=== PATIENT | male | born 1955 | race Caucasian/White ===

== ENCOUNTER 2022-01-31 16:46 | Inpatient (IN) | payer MEDICARE, OTHER ==
[~2022-01-31] VITALS: Ht 170.2 cm; Wt 44.0 kg
--- NOTE | 2022-01-31 17:05 | NUR ---
prabhakar, from sn[facility], s/p fall, hit his head on the bed frame, no ALOC. Noticed bump on the occipital area. Placed comfortably in bed. Vitals checked.
[2022-01-31] MEDS ORDERED: ETOMIDATE 2 MG/ML VIAL IV ONE (19:00)
--- NOTE | 2022-01-31 19:07 | NUR ---
R FA #20 IV ESTABLISHED. PATENT AND FLUSHING
[2022-01-31] MEDS ORDERED: ETOMIDATE 2 MG/ML VIAL ONE (19:30)
--- NOTE | 2022-01-31 20:01 | NUR ---
CT SCAN DONE AT RADIOLOGY DEPT
--- NOTE | 2022-01-31 20:01 | NUR ---
THERE WAS A STANDBY ETOMIDATE IN CASES PATIENT WILL BE RESTLESS. IT WAS NOT GIVEN BECAUSE PATIENT WAS NOT RESTLESS.
--- NOTE | 2022-01-31 20:38 | NUR ---
RAPID COVID COLLECTED AND SENT TO LAB.
[2022-01-31 21:15] LABS: BASOPHILS % (AUTO) 0.6 % (0.0-2.0); EOSINOPHILS % (AUTO) 1.5 % (0.0-6.0); HEMATOCRIT 29 % (39-51); HEMOGLOBIN 9.4 g/dL (13.5-17.5); LYMPHOCYTES # (AUTO) 1.7 K/uL (0.8-4.8); LYMPHOCYTES % (AUTO) 28.2 % (20.0-44.0); MEAN CORPUSCULAR HGB CONC 33 g/dl (31.0-36.0); MEAN CORPUSCULAR VOLUME 91 fL (80-96); MONOCYTES # (AUTO) 0.6 K/uL (0.1-1.30); MONOCYTES % (AUTO) 10.3 % (2.0-12.0); NEUTROPHILS # (AUTO) 3.5 K/uL (1.8-8.9); NEUTROPHILS % (AUTO) 59.4 % (43.0-81.0); PLATELET COUNT (AUTO) 252 K/uL (150-450); RED BLOOD CELL COUNT(AUTO) 3.14 MIL/uL (4.5-6.0); WHITE BLOOD COUNT (AUTO) 5.9 K/uL (4.3-11.0)
[2022-01-31 21:24] LABS: CREATININE 0.8 mg/dL (0.6-1.3); POTASSIUM 4.6 mmol/L (3.5-5.1)
--- NOTE | 2022-01-31 22:21 | NUR ---
Kellee jimenez in [facility] - 01/31/22 at 2221 by ALFONSO MANUEL GERARD
--- NOTE | 2022-01-31 22:21 | NUR ---
REPORT GIVEN TO MANUEL GERARD
--- NOTE | 2022-01-31 22:50 | NUR ---
NEIGHBORHOOD WORKER NOTES 66 YEAR OLD MALE RECEIVED FROM ER DEPT VIA STRETCHER ACCOMPANIED BY 2 NURSES [facility] WITH ADMITTING DX SUBARACHNOID HEMORRHAGE. PT IS A/O TO SELF. VERBALLY RESPONSIVE. SPEAKS [place] ONLY. NO CHANGES IN LOC UPON ADMISSION. BREATHING IS EVEN AND UNLABORED. NO SOB/ACUTE DISTRESS NOTED UPON ADMISSION. ON RA WITH 02 SAT OF 96%. IV SITE NOTED IN RFA, #20G, PATENT AND INTACT. ATTACHED TO TELE MONITORING WITH SR, HR IN 90s. PT IS AFEBRILE. SKIN DRY AND INTACT. NOTED WITH MULTIPLE BRUISES/SKIN TEAR IN BOTH ARMS AND SMALL HEMATOMA ON HIS LEFT PARIETAL LOBE, NO BLEEDING NOTED. PT DENIES HEADACHE OR ANY DISCOMFORT. PT IS RESTLESS AND TRIES TO GET UP FROM THE BED. INITIATED BILATERAL SOFT WRIST RESTRAINTS AT THIS TIME PER DR. ROJO'S ORDER. ALL SAFETY PRECAUTIONS MAINTAINED. PT DRY AND CLEAN. BED LOCKED IN LOWEST POSITION, BILATERAL SR UP. BED ALARM ON. CALL LIGHT WITHIN REACH. WILL CONTINUE TO MONITOR FOR ANY LOC CHANGES.
--- NOTE | 2022-01-31 22:51 | NUR ---
PT TRANSFERRED TO [facility] VIA ACLS PROTOCOL. VSS
[2022-01-31] MEDS ORDERED: ONDANSETRON HCL/PF 4 MG/2 ML VIAL IVP PRN (23:30)
[2022-01-31] MEDS ORDERED: ACETAMINOPHEN 325 MG TABLET PO PRN (23:30)
[2022-01-31] MEDS ORDERED: Z GUARD REMEDY 4 OZ OINT TP PRN (23:30)
[2022-02-01] VITALS (7 sets, daily range): BP systolic 101–159; BP diastolic 68–94
[2022-02-01 07:01] LABS: ALBUMIN 3.1 g/dL (3.4-5.0); BILIRUBIN,TOTAL 0.2 mg/dL (0.2-1.0); CALCIUM, SERUM 8.6 mg/dL (8.5-10.1); CREATININE 0.7 mg/dL (0.6-1.3); MAGNESIUM 1.7 mg/dL (1.8-2.4); PHOSPHORUS 3.5 mg/dL (2.5-4.9); POTASSIUM 3.9 mmol/L (3.5-5.1); TOTAL PROTEIN, SERUM 6.4 g/dL (6.4-8.2)
[2022-02-01] MEDS: PANTOPRAZOLE 40 MG TABLET.DR PO SCH ×2 (07:30→08:32)
--- NOTE | 2022-02-01 07:30 | NUR ---
RN NOTES PT FOUND SEMI FOWLERS DISPLAYING NO S/S OF ACUTE DISTRESS, FLACC = 0 AND BREATHING IS EVEN AND UNLABORED ON RA. PT IS SEVERELY CONFUSED, CONSTANTLY ATTEMPTING TO CRAWL OUT OF BED. SUCH, BILATERAL SOFT WRISTS APPLIED, PULSES PALPATED AND CAP REFILL < 3 SECONDS BILATERALLY. RN IS CONTINUOUSLY REPOSITIONING PT BACK IN BED. RN WILL MONITOR AND TREAT THROUGHOUT SHIFT. SAFETY MEASURES IN PLACE, BED LOCKED AND IN LOWEST POSITION, SIDE RAILS UPX3, CALL LIGHT WITHIN REACH, BED ALARM ARMED.
--- NOTE | 2022-02-01 07:30 | NUR ---
RN NOTES PT FOUND, ATTEMPTING TO CRAWL OUT OF BED, PRIMARY RN AND OTHER RN ASSISTED PT BACK TO BED. FLACC = 0 AND BREATHING IS EVEN AND UNLABORED. PT IS SEVERELY CONFUSED. BILATERAL SOFT WRISTS APPLIED, PULSES PALPATED AND CAP REFILL < 3 SECONDS BILATERALLY. R FA 20G IS PATIENT AND INTACT. RN WILL MONITOR AND TREAT THROUGHOUT SHIFT. SAFETY MEASURES IN PLACE, BED LOCKED AND IN LOWEST POSITION, SIDE RAILS UPX2, CALL LIGHT WITHIN REACH, BED ALARM ARMED.
[2022-02-01 07:40] LABS: THYROID STIMULATING HORMONE 3.415 uIU/mL (0.358-3.74)
--- NOTE | 2022-02-01 07:42 | NUR ---
RN CLOSING NOTES PT WAS CONFUSED AND RESTLESS THROUGHOUT THE SHIFT, A/O TO SELF. SPEAKS CITIZEN OF [place] ONLY. BREATHING IS EVEN AND UNLABORED. NO SOB/ACUTE DISTRESS NOTED. ON RA WITH 02 SAT OF 97%. IV SITE IN RFA, #20G, PATENT AND INTACT. ON TELE MONITORING WITH SR, HR IN 90s. PT REMAINED AFEBRILE. SKIN DRY AND INTACT. NOTED WITH MULTIPLE BRUISES/SKIN TEAR IN BOTH ARMS AND SMALL HEMATOMA ON HIS LEFT PARIETAL LOBE, NO BLEEDING NOTED. ON BILATERAL SOFT WRIST RESTRAINTS. KEPT PT CLEAN AND DRY. ALL SAFETY PRECAUTIONS MAINTAINED. BED LOCKED IN LOWEST POSITION, BILATERAL SR UP. BED ALARM ON. CALL LIGHT WITHIN REACH. WILL ENDORSE TO AM SHIFT NURSE FOR NANCY.
--- NOTE | 2022-02-01 08:30 | NUR ---
NURSES NOTES RN ATTEMPTED TO GIVE PT PROTONIX 40MG TAB. PT KEPT MOUTH CLOSED, REFUSED WATER. RN ATTEMPTED TO EDUCATE PT ON IMPORTANCE OF MEDICATION. PT SEVERELY CONFUSED, ATTEMPTING TO CRAWL OUT OF BED. RN WASTED RX.
[2022-02-01] MEDS ORDERED: MULT-447 PO (08:35)
[2022-02-01] MEDS ORDERED: ASPI-1169 PO (08:35)
[2022-02-01] MEDS ORDERED: HYDR-4303 PO (08:35)
[2022-02-01] MEDS ORDERED: FURO-145 PO (08:35)
[2022-02-01] MEDS ORDERED: GABA-532 PO (08:35)
[2022-02-01] MEDS ORDERED: SODI1TAB66 PO (08:35)
[2022-02-01] MEDS ORDERED: VALP250S22 PO (08:35)
[2022-02-01] MEDS ORDERED: POLY17PO4 PO (08:35)
[2022-02-01] MEDS ORDERED: INSU100V36 SQ (08:35)
[2022-02-01] MEDS ORDERED: AMIT25TA9 PO (08:35)
[2022-02-01] MEDS ORDERED: ACET-868 PO (08:35)
[2022-02-01] MEDS ORDERED: TRAM50TA2 PO (08:35)
[2022-02-01] MEDS ORDERED: DOCU-141 PO (08:35)
[2022-02-01] MEDS ORDERED: ROSU20TA2 PO (08:35)
[2022-02-01] MEDS ORDERED: INSU100V7 SQ (08:35)
[2022-02-01] MEDS ORDERED: QUET25TA PO (08:35)
[2022-02-01] MEDS ORDERED: METF-440 PO (08:35)
[2022-02-01 08:55] LABS: BASOPHILS % (AUTO) 0.4 % (0.0-2.0); EOSINOPHILS % (AUTO) 2.3 % (0.0-6.0); HEMATOCRIT 27 % (39-51); HEMOGLOBIN 9.3 g/dL (13.5-17.5); LYMPHOCYTES # (AUTO) 1.4 K/uL (0.8-4.8); LYMPHOCYTES % (AUTO) 26.8 % (20.0-44.0); MEAN CORPUSCULAR HGB CONC 34 g/dl (31.0-36.0); MEAN CORPUSCULAR VOLUME 90 fL (80-96); MONOCYTES # (AUTO) 0.6 K/uL (0.1-1.30); MONOCYTES % (AUTO) 11.1 % (2.0-12.0); NEUTROPHILS # (AUTO) 3.2 K/uL (1.8-8.9); NEUTROPHILS % (AUTO) 59.4 % (43.0-81.0); PLATELET COUNT (AUTO) 246 K/uL (150-450); RED BLOOD CELL COUNT(AUTO) 3.05 MIL/uL (4.5-6.0); WHITE BLOOD COUNT (AUTO) 5.4 K/uL (4.3-11.0)
[2022-02-01] MEDS: Magnesium 1GM/D5W 100ML PREMIX 100 ML IV SCH ×2 (11:16→12:27)
--- NOTE | 2022-02-01 11:30 | NUR ---
RN NOTE RN SPOKE TO DAUGHTER, ADEN GRUBER. DAUGHTER CONFIRMED THAT PT IS DNR/DNI
--- NOTE | 2022-02-01 19:30 | NUR ---
RN NOTES, RECEIVED PATIENT IN BED CONFUSED, YELLING NO DISTRESS NOTED, AT ROOM AIR, ON BILATERAL SOFT WRIST RESTRAINS, NO ABNORMALITY NOTED AT SITE, NO CIRCULATION COMPROMISED, WILL CONT TO MONITOR CLOSELY.
--- NOTE | 2022-02-01 19:30 | NUR ---
RN NOTES PT FOUND SEMI FOWLERS DISPLAYING NO S/S OF ACUTE DISTRESS, FLACC = 0 AND BREATHING IS EVEN AND UNLABORED ON RA. CONFUSION CONTINUES, CONSTANTLY ATTEMPTING TO CRAWL OUT OF BED. BILATERAL SOFT WRISTS APPLIED, PULSES PALPATED AND CAP REFILL < 3 SECONDS BILATERALLY. SBAR AND REPORT GIVEN TO RESOURCE TEACHER RN, ALL QUESTIONS ANSWERED. SAFETY MEASURES IN PLACE, BED LOCKED AND IN LOWEST POSITION, SIDE RAILS UPX3, CALL LIGHT WITHIN REACH, BED ALARM ARMED. PT ENDORSED IN STABLE CONDITION FOR NANCY.
[2022-02-02] VITALS: BP 158/85
[2022-02-02 04:00] VITALS: BP 118/74
--- NOTE | 2022-02-02 06:32 | NUR ---
END OF SHIFT RN NOTES PT IN BED SLEEPING AT THIS TIME, WITH ADEQUATE HOURS OF SLEEP, ALERT TO SELF, NO CHANGE IN MENTATION LAST NIGHT, BREATHING EVEN AND UNLABORED, AT ROOM AIR, NO SOB/ACUTE DISTRESS NOTED, CONTINUE TRYING TP GET UP FROM BED SOON HE IS AWAKE, CONT ON BILATERAL SOFT WRISTS IN PLACE, NO ABNORMALITY NOTED, NO CIRCULATION COMPROMISED, UPDATE GIVEN TO DAUGHTER LAST NIGHT, ALL SAFETY MEASURES MAINTAINED, BED LOCKED AND IN LOWEST POSITION, SIDE RAILS UPX2, CALL LIGHT WITHIN REACH, BED ALARM ON, WILL ENDORSE CONTINUITY OF CARE TO ONCOMING NURSE..
[2022-02-02 07:09] LABS: CALCIUM, SERUM 8.6 mg/dL (8.5-10.1); CREATININE 0.5 mg/dL (0.6-1.3); POTASSIUM 3.8 mmol/L (3.5-5.1)
[2022-02-02] MEDS: PANTOPRAZOLE 40 MG TABLET.DR PO SCH (07:30)
[2022-02-02 07:43] LABS: BASOPHILS % (AUTO) 0.7 % (0.0-2.0); EOSINOPHILS % (AUTO) 1.7 % (0.0-6.0); HEMATOCRIT 29 % (39-51); HEMOGLOBIN 9.7 g/dL (13.5-17.5); LYMPHOCYTES # (AUTO) 1.4 K/uL (0.8-4.8); LYMPHOCYTES % (AUTO) 30.4 % (20.0-44.0); MEAN CORPUSCULAR HGB CONC 33 g/dl (31.0-36.0); MEAN CORPUSCULAR VOLUME 89 fL (80-96); MONOCYTES # (AUTO) 0.6 K/uL (0.1-1.30); MONOCYTES % (AUTO) 12.9 % (2.0-12.0); NEUTROPHILS # (AUTO) 2.5 K/uL (1.8-8.9); NEUTROPHILS % (AUTO) 54.3 % (43.0-81.0); PLATELET COUNT (AUTO) 270 K/uL (150-450); RED BLOOD CELL COUNT(AUTO) 3.25 MIL/uL (4.5-6.0); WHITE BLOOD COUNT (AUTO) 4.5 K/uL (4.3-11.0)
[2022-02-02 09:00] VITALS: BP 116/71
[2022-02-02 13:00] VITALS: BP 138/70
[2022-02-02] MEDS: ENSURE ENLIVE 237 ML LIQUID (VANILLA) PO SCH ×2 (13:09→17:40)
[2022-02-02 17:00] VITALS: BP 117/58
--- NOTE | 2022-02-02 19:18 | NUR ---
RN NOTES PT FOUND SEMI FOWLERS DISPLAYING NO S/S OF ACUTE DISTRESS, FLACC = 0 AND BREATHING IS EVEN AND UNLABORED ON RA. CONFUSION CONTINUES, CONSTANTLY ATTEMPTING TO CRAWL OUT OF BED. BILATERAL SOFT WRISTS APPLIED, PULSES PALPATED AND CAP REFILL < 3 SECONDS BILATERALLY. SBAR AND REPORT GIVEN TO STONE DRILLER RN, ALL QUESTIONS ANSWERED. SAFETY MEASURES IN PLACE, BED LOCKED AND IN LOWEST POSITION, SIDE RAILS UPX3, CALL LIGHT WITHIN REACH, BED ALARM ARMED. PT ENDORSED IN STABLE CONDITION FOR NANCY.
--- NOTE | 2022-02-02 19:35 | NUR ---
RN NOTES RECEIVED PATIENT AWAKE ON BED, A/OX1, ON BILATERAL SOFT WRIST RESTRAINTS, SR ON TELE MONITOR HR-81, , NO SOB, [id number], WILL CONTINUE TO MONITOR
[2022-02-02 21:00] VITALS: BP 136/69
[2022-02-03 01:00] VITALS: BP 123/66
[2022-02-03 05:00] VITALS: BP 129/70
--- NOTE | 2022-02-03 06:43 | NUR ---
RN NOTES SLEEPING BUT AROUSABLE, MORNING CARE RENDERED, NOT IN DISTRESS, NO PAIN NOTED, MORNING CARE RENDERED, PT. NEEDS ATTENDED
[2022-02-03 07:10] LABS: CALCIUM, SERUM 8.6 mg/dL (8.5-10.1); CREATININE 0.6 mg/dL (0.6-1.3); POTASSIUM 3.9 mmol/L (3.5-5.1)
[2022-02-03 07:11] LABS: BASOPHILS % (AUTO) 0.6 % (0.0-2.0); EOSINOPHILS % (AUTO) 1.7 % (0.0-6.0); HEMATOCRIT 30 % (39-51); LYMPHOCYTES # (AUTO) 1.3 K/uL (0.8-4.8); LYMPHOCYTES % (AUTO) 24.6 % (20.0-44.0); MEAN CORPUSCULAR HGB CONC 33 g/dl (31.0-36.0); MEAN CORPUSCULAR VOLUME 90 fL (80-96); MONOCYTES # (AUTO) 0.7 K/uL (0.1-1.30); MONOCYTES % (AUTO) 12.5 % (2.0-12.0); NEUTROPHILS # (AUTO) 3.2 K/uL (1.8-8.9); NEUTROPHILS % (AUTO) 60.6 % (43.0-81.0); PLATELET COUNT (AUTO) 274 K/uL (150-450); RED BLOOD CELL COUNT(AUTO) 3.35 MIL/uL (4.5-6.0); WHITE BLOOD COUNT (AUTO) 5.3 K/uL (4.3-11.0)
--- NOTE | 2022-02-03 07:30 | NUR ---
RN OPENING NOTE PT ASLEEP IN BED UPON ASSESSMENT. PT FOUND SEMI FOWLERS DISPLAYING NO S/S OF ACUTE DISTRESS, FLACC = 0 AND BREATHING IS EVEN AND UNLABORED ON RA. CONFUSION CONTINUES PER SECOND SHIFT SUPERVISOR RN. BILATERAL SOFT WRISTS APPLIED, PULSES PALPATED AND CAP REFILL < 3 SECONDS BILATERALLY. PT HAS RFA 20G IV INTACT AND PATENT. SAFETY MEASURES IN PLACE, BED LOCKED AND IN LOWEST POSITION, SIDE RAILS UPX3, CALL LIGHT WITHIN REACH, BED ALARM ARMED. WILL CONTINUE TO MONITOR.
[2022-02-03 09:00] VITALS: BP 96/65
[2022-02-03] MEDS: ENSURE ENLIVE 237 ML LIQUID (VANILLA) PO SCH ×3 (09:47→16:51)
[2022-02-03] MEDS: PANTOPRAZOLE 40 MG TABLET.DR PO SCH (09:47)
[2022-02-03 13:00] VITALS: BP 102/48
[2022-02-03 17:00] VITALS: BP 113/58
--- NOTE | 2022-02-03 18:33 | NUR ---
RN CLOSING NOTE PT REMAINED STABLE THROUGHOUT SHIFT. PT RESTING IN BED CURRENTLY. PT SEMI FOWLERS DISPLAYING NO S/S OF ACUTE DISTRESS, FLACC = 0 AND BREATHING IS EVEN AND UNLABORED ON RA TOLERATING WELL WITH SPO2 OF 97%. BILATERAL SOFT WRISTS APPLIED, PULSES PALPATED AND CAP REFILL < 3 SECONDS BILATERALLY. PT HAS RFA 20G IV INTACT AND PATENT SL. SAFETY MEASURES IN PLACE, BED LOCKED AND IN LOWEST POSITION, SIDE RAILS UPX3, CALL LIGHT WITHIN REACH, BED ALARM ARMED. WILL ENDORSE TO POULTRY HANGER RN.
--- NOTE | 2022-02-03 19:10 | NUR ---
RN NOTE RECEIVED PATIENT IN BED, AO X 1, [place] SPEAKING ONLY, IN NO ACUTE DISTRESS AT THIS TIME. RESPIRATIONS UNLABORED, SATURATION AT 98% ON ROOM AIR, SR ON THE MONITOR, HR IS 93. NOTED IV SITE AT R FOREARM 20G, PATENT AND FLUSHING WELL, NO S/S OF INFECTION OR INFILTRATION. B SOFT WRIST RESTRAINTS IN PLACE, SKIN AND CIRCULATION CHECKED AND ARE WNL. SAFETY MEASURES IMPLEMENTED. PATIENT BED ALARM IS ON. HEAD OF BED ELEVATED. BED IS LOCKED, IN LOWEST POSITION AND SIDE RAILS UP. CALL LIGHT WITHIN REACH OF THE PATIENT. WILL CONTINUE TO MONITOR AND REASSESS FOR ANY CHANGES.
[2022-02-03 20:00] VITALS: BP 105/64
[2022-02-03] MEDS: MUPIROCIN OINT 2% 22 GM TUBE NS SCH (21:36)
[2022-02-04] VITALS: BP 118/64
[2022-02-04 04:00] VITALS: BP 118/61
[2022-02-04 07:51] LABS: CREATININE 0.7 mg/dL (0.6-1.3); POTASSIUM 4.3 mmol/L (3.5-5.1)
[2022-02-04 08:00] VITALS: BP 114/65
[2022-02-04 08:00] LABS: BASOPHILS % (AUTO) 0.5 % (0.0-2.0); HEMATOCRIT 30 % (39-51); LYMPHOCYTES # (AUTO) 1.7 K/uL (0.8-4.8); LYMPHOCYTES % (AUTO) 25.1 % (20.0-44.0); MEAN CORPUSCULAR HGB CONC 33 g/dl (31.0-36.0); MEAN CORPUSCULAR VOLUME 90 fL (80-96); MONOCYTES # (AUTO) 0.8 K/uL (0.1-1.30); MONOCYTES % (AUTO) 11.6 % (2.0-12.0); NEUTROPHILS # (AUTO) 4.1 K/uL (1.8-8.9); NEUTROPHILS % (AUTO) 61.8 % (43.0-81.0); PLATELET COUNT (AUTO) 281 K/uL (150-450); RED BLOOD CELL COUNT(AUTO) 3.36 MIL/uL (4.5-6.0); WHITE BLOOD COUNT (AUTO) 6.6 K/uL (4.3-11.0)
[2022-02-04] MEDS: PANTOPRAZOLE 40 MG TABLET.DR PO SCH (08:16)
[2022-02-04] MEDS: ENSURE ENLIVE 237 ML LIQUID (VANILLA) PO SCH ×2 (08:17→13:06)
[2022-02-04] MEDS: MUPIROCIN OINT 2% 22 GM TUBE NS SCH (08:31)
--- NOTE | 2022-02-04 09:04 | NUR ---
RN oPENING NOTE NOTE PATIENT ENDORSED BY OUTGOING NURSE FOR CONTINUITY OF CARE. RECEIVED PATIENT IN BED, AO X 1, [place] SPEAKING ONLY, IN NO ACUTE DISTRESS AT THIS TIME. RESPIRATIONS UNLABORED, SATURATION AT 99% ON ROOM AIR, SR ON THE MONITOR, HR IS 83. NOTED IV SITE AT R FOREARM 20G, PATENT AND FLUSHING WELL, NO S/S OF INFECTION OR INFILTRATION. Pt. HAS SOFT WRIST RESTRAINTS IN PLACE AND WILL BE UPDATED AT 2330, SKIN AND CIRCULATION CHECKED AND ARE WNL. SAFETY MEASURES IMPLEMENTED. PATIENT BED ALARM IS ON. HEAD OF BED ELEVATED. BED IS LOCKED, IN LOWEST POSITION AND SIDE RAILS UP. CALL LIGHT WITHIN REACH OF THE PATIENT. WILL CONTINUE TO MONITOR AND REASSESS FOR ANY CHANGES.
--- NOTE | 2022-02-04 11:27 | NUR ---
INSTRUCTOR DECORATING NOTES SPOKE WITH DR. ONESIMO POSADAS - [phone]. PER HIM, OKAY TO DISCHARGE PATIENT
[2022-02-04 12:00] VITALS: BP 106/59
--- NOTE | 2022-02-04 17:03 | NUR ---
Patient discharged and returned to his facility report given to Tomas RN Network Lead. Education provided to patient. Patient returned with BIBA. No distress or SOB within Normal vital sign. Assistance was provided as needed.
== END 2022-02-04 16:41 | DRG 86 ==
LOC: ER 16:54 → TELE-TD 21:51 → TELE1 02-02 15:54
PROVIDERS: ADMIT Nurse Practitioner Acute Care; ATTEND Family Medicine
DX: S06.6X0A Traumatic subarachnoid hemorrhage without loss of consciousness, initial encounter (principal); G93.1 Anoxic brain damage, not elsewhere classified; E44.1 Mild protein-calorie malnutrition; Z68.1 Body mass index [BMI] 19.9 or less, adult; R64 Cachexia; R29.6 Repeated falls; E11.9 Type 2 diabetes mellitus without complications; Z20.822 Contact with and (suspected) exposure to COVID-19; I10 Essential (primary) hypertension; D63.8 Anemia in other chronic diseases classified elsewhere; E78.5 Hyperlipidemia, unspecified; F03.90 Unspecified dementia, unspecified severity, without behavioral disturbance, psychotic disturbance, mood disturbance, and anxiety; S61.512A Laceration without foreign body of left wrist, initial encounter; W19.XXXA Unspecified fall, initial encounter; Y93.9 Activity, unspecified; Y92.129 Unspecified place in nursing home as the place of occurrence of the external cause; Z79.84 Long term (current) use of oral hypoglycemic drugs; R40.2362 Coma scale, best motor response, obeys commands, at arrival to emergency department; R40.2142 Coma scale, eyes open, spontaneous, at arrival to emergency department; R40.2252 Coma scale, best verbal response, oriented, at arrival to emergency department
CPT/HCPCS: 36415; 70450-TC; 72125-TC; 80048-TC; 80053-TC; 80061-TC; 82962-TC; 83735-TC; 84100-TC; 84443-TC; 85025-TC; 85730-TC; 87081-TC; 97112-TC; 97530-TC; G0378; J3475; J3490; J7050